=== PATIENT | male | born 1960 | race Caucasian/White ===

== ENCOUNTER 2018-11-26 07:58 | Observation (INO) | payer BC ==
[2018-11-26] MEDS ORDERED: ASPIRIN 81 MG TABLET, CHEWABLE PO ONE (09:40)
--- NOTE | 2018-11-26 10:08 | ER Document Report ---
ED Cardiac - General Chief Complaint: Chest Pain Stated Complaint: CHEST PAIN Time Seen by Provider: 11/26/18 09:40 Mode of Arrival: Ambulatory Information source: Patient, Relative Notes: Patient is a 58-year-old male comes emergency room with a 2-day onset of back and chest pain. Patient states he started with left scapular pain on Thursday night and progressed to the left shoulder down the left arm and into the hand. The hand started to tingle and that would come and go for the next day or so but the pain in the back shoulder and arm maintained pretty constant rate of discomfort. Patient also informs me he had a PR 5 years ago and had 2 stents placed. This was done in [place]. He also has a history of hypertension and has run out of his blood pressure medications. He is currently on mail order medication supply and the physician that wrote him the original prescriptions schedule him to come back in a year and did not give him enough medications for that year and is now requesting that he come back in for a visit before the right the rest of the prescriptions. So patient's been out of his blood pressure medications for about a month and a half. He was currently on metoprolol 25 mg twice a day and losartan 100 mg daily. He also does take a baby aspirin daily and is continued to do that. Patient states he is got a pretty significant family history of heart disease and hypertension in the family he has 6 brothers and 3 sisters all of whom have some form of hypertension or have had CAD in the past with open heart surgery. Mother and father according to patient have no history of heart problems. 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 He does do some heavy lifting moving and pulling on a regular basis about every other day. He does state that it hurts to take a deep breath but has not had any cough. He continues to smoke a pack of cigarettes a day. Patient is denied any major shortness of breath and has had no nausea vomiting or sweating with this presentation of pain. Patient's blood pressures on arrival are notably high with the left arm showing 191/104 and the right arm showing 185/103. His pulse rates currently 96/min and he is satting 98% on room air. He is afebrile. Patient does state that the pain he has currently is about a 3 out of 5. Is been fairly constant since his inception of the pain with the exception of the hand with tingling coming and going. He does state that he did take Tylenol and the pain got a little better but when it wore off the pain came right back. interjects that last night he could not sleep because he could not find a position of comfort. Also informs me that exertion does not seem to have any impact on the intensity of this discomfort. TRAVEL OUTSIDE OF THE [place] IN LAST 30 DAYS: No - HPI Patient complains to provider of: Chest pain Was the onset of pain: Sudden Is the pain a: New problem Chest pain location: Pleuritic, Other - Above left breast Quality of pain: Achy, Tightness Chest pain radiation location: Left arm, Left shoulder, Back Severity now: Moderate Severity at worst: Moderate Pain level currently: 3 Chest pain precipitating factors: Physical Exertion Cardiac risk factors: Hypertension, Smoker, + Family history, Hx PR. denies: Diabetes Positive cardiac history: Yes Associated symptoms: Back pain. denies: Nausea/vomiting, Neck pain, Shortness of breath Exacerbated by: Denies Relieved by: Other - Tylenol helps some Similar symptoms previously: Yes Recently seen / treated by doctor: No - Related Data Allergies/Adverse Reactions: No Known Allergies Allergy (Verified 11/26/18 08:01) Past Medical History - General Information source: Patient, Relative - Social History Smoking Status: Current Every Day Smoker Cigarette use (# per day): Yes - Pack a day Chew tobacco use (# tins/day): No Smoking Education Provided: Yes Frequency of alcohol use: Rare Drug Abuse: None Lives with: Family, Spouse/Significant other Family History: Reviewed & Not Pertinent, CAD, DM, Hyperlipidemia, Hypertension Patient has suicidal ideation: No Patient has homicidal ideation: No - Past Medical History Cardiac Medical History: Reports: Hx Hypertension Renal/ Medical History: Denies: Hx Peritoneal Dialysis - Immunizations Hx Diphtheria, Pertussis, Tetanus Vaccination: Yes Review of Systems - Review of Systems Constitutional: No symptoms reported EENT: No symptoms reported Cardiovascular: See HPI, Chest pain Respiratory: See HPI, Hurts to breathe Gastrointestinal: No symptoms reported Genitourinary: No symptoms reported Male Genitourinary: No symptoms reported Musculoskeletal: No symptoms reported Skin: No symptoms reported Hematologic/Lymphatic: No symptoms reported Neurological/Psychological: No symptoms reported -: Yes All other systems reviewed and negative Physical Exam - Vital signs Vitals: Temp Pulse Resp BP Pulse Ox 98.2 F 96 20 185/103 H 98 11/26/18 08:11 11/26/18 08:11 11/26/18 08:11 11/26/18 08:11 11/26/18 08:11 Interpretation: Hypertensive - Notes Notes: PHYSICAL EXAMINATION: GENERAL: Patient is a well-nourished well-developed 58-year-old male who on physical exam today is in no apparent distress. HEAD: Atraumatic, normocephalic. EYES: Pupils equal round and reactive to light, extraocular movements intact, sclera anicteric, conjunctiva are normal. ENT: Nares patent, oropharynx clear without exudates. Moist mucous membranes. NECK: Normal range of motion, supple without lymphadenopathy LUNGS: Auscultation patient's lung todd show he does have bilateral breath sounds with breath sounds decreased throughout no rhonchi rales or wheeze are noted on auscultation. HEART: Regular rate and rhythm without murmurs ABDOMEN: Soft, nontender, nondistended abdomen. No guarding, no rebound. No masses appreciated. Musculoskeletal: Examination patient's area of concern is his left anterior chest and shoulder and arm as well as the left scapular region. Palpation along the scapular border shows some mildly reproducible tenderness mid scapula to palpation. There appears to be a inflamed knot in the area that seems to also send pain through to the chest when palpated. Anterior chest also noted is some mild reproducible pain with resistance of the arms. Patient has full range of motion of the arm and shoulder without any deficits. He has good pulmonologist intensivist strength in the left hand and good cap refill in the nailbeds of the fingers of the left hand. He has good flexion extension at the elbow without any discomfort or pain. NEUROLOGICAL Normal speech, normal gait. Normal sensory, motor exams PSYCH: Normal mood, normal affect. SKIN: Warm, Dry, normal turgor, no rashes or lesions noted. Course - Re-evaluation Re-evalutation: 11/26/18 13:03 Patient state emergency room proved to be somewhat interesting in the fact that he came in he was tachycardic at 105 showed Q waves in inferior leads which most likely are old in nature since he had a STEMI back in 2013 on her last EKG we did here. Patient did receive 100% relief of his 3 out of 5 pain with 2 nitros. He did give a headache so we did give him Tylenol and since that time he has been pain-free and headache free. While charting on the other patients I was watching the monitor on patient and at some point he dropped down on the monitor into the low 50s high 40s on his monitor strip. I had nursing repeat the EKG and it coming back showing a bradycardia that did not show a block. That was rated at 54 beats a minute. Q wave continued in the inferior leads. Patient has not been on any medications for a month to month and a half so he is not on a beta-shawnee and is not on his losartan. At the inability to figure out why he should be at 50 bpm felt it was necessary to have him admitted for monitoring tonight. - Vital Signs Vital signs: Temp Pulse Resp BP Pulse Ox 98.2 F 96 13 161/86 H 99 11/26/18 08:11 11/26/18 08:11 11/26/18 12:56 11/26/18 12:56 11/26/18 12:56 - Laboratory Result Diagrams: 11/26/18 10:11 11/26/18 10:11 Laboratory results interpreted by me: 11/26/18 10:11 Potassium 5.3 H Discharge - Discharge Clinical Impression: Bradycardia Chest pain Qualifiers: Chest pain type: unspecified Qualified Code(s): R07.9 - Chest pain, unspecified Condition: Stable Disposition: ADMITTED OBSERVATION Admitting Provider: Jennifer (Hospitalist) Unit Admitted: Telemetry
--- NOTE | 2018-11-26 10:10 | RADIOLOGY REPORT (SQ) ---
EXAM DESCRIPTION: CHEST SINGLE VIEW COMPLETED DATE/TIME: 11/26/2018 10:01 am REASON FOR STUDY: cp COMPARISON: None. EXAM PARAMETERS: NUMBER OF VIEWS: One view. TECHNIQUE: Single frontal radiographic view of the chest acquired. RADIATION DOSE: NA LIMITATIONS: None. FINDINGS: LUNGS AND PLEURA: No opacities, masses or pneumothorax. No pleural effusion. MEDIASTINUM AND HILAR STRUCTURES: No masses. Contour normal. HEART AND VASCULAR STRUCTURES: Heart normal in size. Normal vasculature. BONES: No acute findings. HARDWARE: None in the chest. OTHER: No other significant finding. IMPRESSION: NO ACUTE RADIOGRAPHIC FINDING IN THE CHEST. TECHNICAL DOCUMENTATION: JOB ID: [id number] [employer]- All Rights Reserved Reading location - IP/workstation name: [email or web address]
[2018-11-26] MEDS: NITROGLYCERIN 0.4 MG/TAB 25 TAB/BOTTLE SL PRN ×2 (10:23→10:46)
[2018-11-26 10:32] LABS: ABSOLUTE EOSINOPHILS # (AUTO) 0.1 10^3/uL (0.0-0.6); ABSOLUTE LYMPHOCYTES (AUTO) 2.2 10^3/uL (0.5-4.7); ABSOLUTE MONOCYTES (AUTO) 0.4 10^3/uL (0.1-1.4); ABSOLUTE NEUT (AUTO) 4.2 10^3/uL (1.7-8.2); BASOPHILS % (AUTO) 0.5 % (0-2); HEMATOCRIT 45.3 % (37.9-51.0); HEMOGLOBIN 15.4 g/dL (13.5-17.0); MEAN CORPUSCULAR HGB CONC 33.9 g/dL (32.0-36.0); MEAN CORPUSCULAR VOLUME 92 fl (80-97); MONOCYTES % (AUTO) 6.4 % (3-13); PLATELET COUNT 210 10^3/uL (150-450); RED BLOOD COUNT 4.95 10^6/uL (4.35-5.55); RED CELL DISTRIBUTION WIDTH 12.8 % (11.5-14.0); SEGMENTED NEUTROPHILS % (AUTO) 61.1 % (42-78); TOTAL CELLS COUNTED % (AUTO) 100 %; WHITE BLOOD COUNT 6.9 10^3/uL (4.0-10.5)
[2018-11-26 11:01] LABS: CREATINE KINASE MB 0.76 ng/mL (<4.55)
[2018-11-26 11:02] LABS: ALANINE AMINOTRANSFERASE 28 U/L (21-72); ALBUMIN 4.7 g/dL (3.5-5.0); ALKALINE PHOSPHATASE 81 U/L (38-126); ANION GAP 11 (5-19); ASPARTATE AMINO TRANSFERASE 27 U/L (17-59); BILIRUBIN,DIRECT 0.3 mg/dL (0.0-0.4); BILIRUBIN,TOTAL 0.4 mg/dL (0.2-1.3); BLOOD UREA NITROGEN 8 mg/dL (7-20); CALCIUM 10.2 mg/dL (8.4-10.2); CARBON DIOXIDE 26 mmol/L (22-30); CHLORIDE 104 mmol/L (98-107); CREATINE KINASE 71 U/L (55-170); GLUCOSE 95 mg/dL (75-110); POTASSIUM 5.3 mmol/L (3.6-5.0); SODIUM 141.2 mmol/L (137-145); TOTAL PROTEIN 7.7 g/dL (6.3-8.2); TROPONIN I < 0.012 ng/mL
[2018-11-26] MEDS ORDERED: ACETAMINOPHEN 325 MG TABLET PO ONE (11:10)
[2018-11-26] MEDS ORDERED: ONDANSETRON HCL INJ/PF 4 MG/2 ML SDV IV PRN (14:03)
[2018-11-26] MEDS ORDERED: (PENDING PHARMACY ID) (Nitroglycerin [Nitrostat] 0.3 MG) SL PRN (14:08)
[2018-11-26] MEDS ORDERED: HYDRALAZINE HCL INJ/PF 20 MG/1 ML SDV IV PRN (14:10)
[2018-11-26] MEDS ORDERED: MORPHINE SULFATE 10 MG/ML INJ IV PRN (14:10)
[2018-11-26] MEDS ORDERED: (PENDING PHARMACY ID) (Losartan Potassium [Losartan Potassium] 1 TAB) PO SCH (14:15)
[2018-11-26] MEDS ORDERED: METOPROLOL TARTRATE 50 MG TABLET PO SCH (14:15)
--- NOTE | 2018-11-26 14:21 | PDOC H&P ---
History of Present Illness Admission Date/PCP: 11/26/18 13:16 Patient complains of: Chest pain History of Present Illness: BRYANT CASTANEDA is a 58 year old male with history of hypertension, coronary artery disease status post NV in 2013 status post 2 stent placements came to the emergency room with complaints of left shoulder pain pain between the shoulder b lades associated with left arm numbness and pain for the last 2 days. Pain is increasing with movements. Denies any shortness of breath denies any headaches denies any dizzy spells denies any nausea vomiting denies any cough cold. Patient is not compliant with medications ran out of the medication 6 weeks ago. Past Medical History Cardiac Medical History: Reports: Myocardial Infarction, Hypertension Past Surgical History Past Surgical History: Reports: Cardiac Catheterization - X2 Social History Lives with: Family, Spouse/Significant other Smoking Status: Current Every Day Smoker Frequency of Alcohol Use: None Hx Recreational Drug Use: No - Advance Directive Resuscitation Status: Full Code Family History Family History: Reviewed & Not Pertinent, CAD, DM, Hyperlipidemia, Hypertension Parental Family History Reviewed: Yes - Family history of heart disease with NV. Children Family History Reviewed: Yes Sibling(s) Family History Reviewed.: Yes Medication/Allergy Home Medications: Aspirin [Ecotrin] 81 mg PO DAILY 11/26/18 Losartan Potassium 1 tab PO DAILY 11/26/18 Metoprolol Tartrate [Lopressor 50 mg Tablet] 25 mg PO Q12H 11/26/18 Nitroglycerin [Nitrostat] 0.3 mg SL PRN PRN 11/26/18 Allergies/Adverse Reactions: No Known Allergies Allergy (Verified 11/26/18 08:01) Review of Systems Constitutional: ABSENT: fatigue, headache(s), weakness Eyes: ABSENT: visual disturbances Ears: ABSENT: hearing changes Nose, Mouth, and Throat: ABSENT: sore throat Cardiovascular: PRESENT: chest pain Respiratory: ABSENT: cough, hemoptysis Gastrointestinal: ABSENT: abdominal pain, constipation, diarrhea, hematemesis, hematochezia, nausea, vomiting Musculoskeletal: ABSENT: joint swelling Neurological: ABSENT: abnormal gait, abnormal speech, confusion, dizziness, focal weakness, syncope Psychiatric: ABSENT: anxiety, depression, homidical ideation, suicidal ideation Physical Exam Vital Signs: Temp Pulse Resp BP Pulse Ox 98.2 F 96 15 168/94 H 100 11/26/18 08:11 11/26/18 08:11 11/26/18 14:00 11/26/18 13:31 11/26/18 14:00 Intake & Output 11/25/18 11/26/18 11/27/18 06:59 06:59 06:59 Weight 86.1 kg General appearance: PRESENT: no acute distress Head exam: PRESENT: atraumatic Eye exam: PRESENT: PERRLA Mouth exam: PRESENT: moist, tongue midline Teeth exam: PRESENT: poor dentation Neck exam: ABSENT: carotid bruit, JVD, lymphadenopathy, thyromegaly Respiratory exam: PRESENT: clear to auscultation alex. ABSENT: rales, rhonchi, wheezes Cardiovascular exam: PRESENT: RRR. ABSENT: diastolic murmur, rubs, systolic murmur GI/Abdominal exam: PRESENT: normal bowel sounds, soft. ABSENT: distended, guarding, mass, organolmegaly, rebound, tenderness Neurological exam: PRESENT: alert, awake, oriented to person, oriented to place, oriented to time, oriented to situation, CN II-XII grossly intact. ABSENT: motor sensory deficit Psychiatric exam: PRESENT: appropriate affect, normal mood. ABSENT: homicidal ideation, suicidal ideation Results Laboratory Results: 11/26/18 10:11 11/26/18 10:11 11/26/18 11/26/18 10:11 10:11 WBC 6.9 RBC 4.95 Hgb 15.4 Hct 45.3 MCV 92 MCH 31.0 MCHC 33.9 RDW 12.8 Plt Count 210 Seg Neutrophils % 61.1 Lymphocytes % 31.0 Monocytes % 6.4 Eosinophils % 1.0 Basophils % 0.5 Absolute Neutrophils 4.2 Absolute Lymphocytes 2.2 Absolute Monocytes 0.4 Absolute Eosinophils 0.1 Absolute Basophils 0.0 Sodium 141.2 Potassium 5.3 H Chloride 104 Carbon Dioxide 26 Anion Gap 11 BUN 8 Creatinine 1.01 Est GFR ( Amer) > 60 Est GFR (Non-Af Amer) > 60 Glucose 95 Calcium 10.2 Total Bilirubin 0.4 AST 27 ALT 28 Alkaline Phosphatase 81 Total Protein 7.7 Albumin 4.7 11/26/18 11/26/18 11/26/18 10:11 10:11 13:14 Creatine Kinase 71 CK-MB (CK-2) 0.76 Troponin I < 0.012 < 0.012 Impressions: Chest X-Ray 11/26/18 09:40 IMPRESSION: NO ACUTE RADIOGRAPHIC FINDING IN THE CHEST. Assessment and Plan - Diagnosis (1) Chest pain Qualifiers: Chest pain type: unspecified Qualified Code(s): R07.9 - Chest pain, unspecified Is this a current diagnosis for this admission?: Yes Plan: 11/[id number]-old male with history of coronary artery disease status post NV and 2 stent placements came with chest pain-like symptoms. Troponin is negative patient is chest pain-free at the time of my examination and EKG no acute changes but heart rate dropped from 100-50 without any beta-blockers. It is going to be not telemetry as observation admission cardiac enzymes x3 requested started on aspirin 325 mg p.o. daily, atorvastatin 10 mg p.o. nightly, lipid panel was requested for the morning. Pharmacological stress test was requested. Cardiac enzymes x3 was requested repeat EKG was requested for this evening. Started on morphine 1 mg IV every 4 PRN for chest pain. He was placed on oxygen 2 L nasal cannula. He was started on hydralazine 10 mg IV every 4 as needed for blood pressure. Home medication losartan was restarted. (2) Hypertensive urgency Is this a current diagnosis for this admission?: Yes Plan: 11/26/2018-patient came in with high blood pressures initially systolic blood pressure is more than 180. With medications latest blood pressure came down to 160 systolic. Patient denies any headaches dizzy spells. He was restarted on losartan and placed on hydralazine 10 mg IV every 4 as needed for systolic blood pressure more than 150. He is to continue to monitor the blood pressure every 4 hours. he was started on low-sodium diet. (3) Coronary artery disease Is this a current diagnosis for this admission?: No Plan: 11/26/2018-patient given the history of coronary artery disease status post NV with stent placements in 2013. Came in with chest pains and to rule out acute coronary syndrome. At the time of my examination patient is chest pain-free initial troponin is negative and EKG no acute changes. - Time Time Spent with patient: 25-34 minutes Smoking Cessation Education: over 10 minutes Medications reviewed and adjusted accordingly: Yes Anticipated discharge: Home
[2018-11-26] MEDS: ENOXAPARIN SODIUM INJ 40 MG/0.4 ML DISP.SYRIN SUBCUT SCH (15:22)
[2018-11-26] MEDS: NICOTINE 21 MG/24 HR PATCH.TD24 TD SCH (15:22)
[2018-11-26 17:30] LABS: CREATINE KINASE MB 0.67 ng/mL (<4.55)
[2018-11-26 17:35] LABS: TROPONIN I < 0.012 ng/mL
[2018-11-26] MEDS: LOSARTAN POTASSIUM 50 MG TABLET PO SCH (18:49)
--- NOTE | 2018-11-26 19:28 | EKG REPORT ---
SEVERITY:- ABNORMAL ECG - SINUS TACHYCARDIA INFERIOR INFARCT, AGE INDETERMINATE : Confirmed by: Candace Sanchez MD 26-Nov-2018 19:28:29
--- NOTE | 2018-11-26 19:28 | EKG REPORT ---
SEVERITY:- ABNORMAL ECG - SINUS RHYTHM PROBABLE INFERIOR INFARCT, AGE INDETERMINATE LATERAL LEADS ARE ALSO INVOLVED : Confirmed by: Candace Sanchez MD 26-Nov-2018 19:28:25
[2018-11-26] MEDS: ACETAMINOPHEN 325 MG TABLET PO PRN (20:00)
[2018-11-26] MEDS: FAMOTIDINE 20 MG TABLET PO SCH (21:21)
[2018-11-26] MEDS ORDERED: ATORVASTATIN CALCIUM 10 MG TABLET PO SCH (22:00)
[2018-11-26 22:39] LABS: CREATINE KINASE MB 0.62 ng/mL (<4.55)
[2018-11-26 22:42] LABS: TROPONIN I < 0.012 ng/mL
[2018-11-27 04:36] LABS: ABSOLUTE EOSINOPHILS # (AUTO) 0.1 10^3/uL (0.0-0.6); ABSOLUTE LYMPHOCYTES (AUTO) 2.2 10^3/uL (0.5-4.7); ABSOLUTE MONOCYTES (AUTO) 0.4 10^3/uL (0.1-1.4); ABSOLUTE NEUT (AUTO) 3.5 10^3/uL (1.7-8.2); BASOPHILS % (AUTO) 0.5 % (0-2); EOSINOPHILS % (AUTO) 1.5 % (0-6); HEMATOCRIT 42.6 % (37.9-51.0); HEMOGLOBIN 14.6 g/dL (13.5-17.0); LYMPHOCYTES % (AUTO) 35.1 % (13-45); MEAN CORPUSCULAR HEMOGLOBIN 31.3 pg (27.0-33.4); MEAN CORPUSCULAR HGB CONC 34.3 g/dL (32.0-36.0); MEAN CORPUSCULAR VOLUME 91 fl (80-97); MONOCYTES % (AUTO) 6.9 % (3-13); PLATELET COUNT 187 10^3/uL (150-450); RED BLOOD COUNT 4.67 10^6/uL (4.35-5.55); RED CELL DISTRIBUTION WIDTH 13.1 % (11.5-14.0); TOTAL CELLS COUNTED % (AUTO) 100 %; WHITE BLOOD COUNT 6.2 10^3/uL (4.0-10.5)
[2018-11-27] MEDS: ACETAMINOPHEN 325 MG TABLET PO PRN (04:44)
[2018-11-27 04:52] LABS: ALANINE AMINOTRANSFERASE 26 U/L (21-72); ALKALINE PHOSPHATASE 71 U/L (38-126); ANION GAP 9 (5-19); ASPARTATE AMINO TRANSFERASE 23 U/L (17-59); BILIRUBIN,DIRECT 0.2 mg/dL (0.0-0.4); BILIRUBIN,TOTAL 0.7 mg/dL (0.2-1.3); BLOOD UREA NITROGEN 15 mg/dL (7-20); CALCIUM 9.6 mg/dL (8.4-10.2); CARBON DIOXIDE 25 mmol/L (22-30); CHLORIDE 106 mmol/L (98-107); CHOLESTEROL 174.04 mg/dL (0-200); GLUCOSE 96 mg/dL (75-110); POTASSIUM 4.4 mmol/L (3.6-5.0); SODIUM 140.1 mmol/L (137-145); TOTAL PROTEIN 6.7 g/dL (6.3-8.2); TRIGLYCERIDES 219 mg/dL (<150)
[2018-11-27 05:03] LABS: DIRECT LDL 104 mg/dL (<100)
[2018-11-27 05:12] LABS: TROPONIN I < 0.012 ng/mL; VLDL CHOLESTEROL 43.8 mg/dL (10-31)
[2018-11-27] MEDS: NICOTINE 21 MG/24 HR PATCH.TD24 TD SCH (09:33)
[2018-11-27] MEDS: FAMOTIDINE 20 MG TABLET PO SCH (09:35)
[2018-11-27] MEDS: LOSARTAN POTASSIUM 50 MG TABLET PO SCH (09:35)
[2018-11-27] MEDS: ENOXAPARIN SODIUM INJ 40 MG/0.4 ML DISP.SYRIN SUBCUT SCH (09:39)
[2018-11-27] MEDS ORDERED: DOCUSATE SODIUM 100 MG/10 ML UDC PO SCH (10:00)
[2018-11-27] MEDS ORDERED: LOSARTAN POTASSIUM 50 MG TABLET PO SCH (10:00)
[2018-11-27] MEDS ORDERED: ASPIRIN 81 MG TABLET, CHEWABLE PO SCH (10:00)
[2018-11-27 15:01] VITALS: BP 143/89
--- NOTE | 2018-11-27 20:04 | PDOC DISCHARGE SUMMARY ---
General - Admit/Disc Date/PCP Admission Date/Primary Care Provider: 11/26/18 14:03 Discharge Date: 11/27/18 - Discharge Diagnosis (1) Chest pain Is this a current diagnosis for this admission?: Yes Summary: The patient has a history of coronary disease. He was admitted for chest pain rule out. 5 troponin levels were all less than 0.012. The patient has a primary manager embalmer funeral director (Dr. Littlejohn) who is, I believe, at vitamin. Encourage the patient to make a follow-up appointment and I will defer to Dr. Littlejohn for additional testing. The patient was pain-free at the time of discharge. (2) Coronary artery disease Is this a current diagnosis for this admission?: Yes Summary: The patient will resume his aspirin therapy. I also suggested he increase his atorvastatin dose to 20 mg until he sees Dr. Littlejohn. He may likely increase the dose again. As noted above he will return to his primary manager embalmer funeral director for further evaluation. (3) Hypertensive urgency Is this a current diagnosis for this admission?: Yes Summary: The patient's pressure was elevated at admission. His losartan was resumed. He is not on any beta-shawnee but I will defer to his primary manager embalmer funeral director. Back on the losartan his blood pressure is slowly improving. (4) Hypercholesterolemia Is this a current diagnosis for this admission?: Yes Summary: As noted above, based on his LDL greater than 100, I did encourage the patient to increase his atorvastatin until he sees his manager embalmer funeral director. - Additional Information Resuscitation Status: Full Code Discharge Diet: Cardiac Discharge Activity: Activity As Tolerated Prescriptions: Atorvastatin Calcium [Lipitor 20 mg Tablet] 20 mg PO QHS #30 tablet Losartan Potassium 100 mg PO DAILY 30 Days #30 tablet Nitroglycerin [Nitrostat 0.4 mg (1/150 Gr) Tabs 25/Bottle] 1 tab SL Q5MP PRN #1 bottle PRN Reason: For Chest Pain Home Medications: Aspirin [Adult Low Dose Aspirin EC] 81 mg PO DAILY 11/26/18 Aspirin [Aspirin 81 mg Chewable Tablet] 324 mg PO DAILY tab.chew 11/27/18 Atorvastatin Calcium [Lipitor 20 mg Tablet] 20 mg PO QHS #30 tablet 11/27/18 Losartan Potassium 100 mg PO DAILY 30 Days #30 tablet 11/27/18 Nicotine [Nicoderm 21 mg/24 Hr Transderm Patch] 1 each TD DAILY patch.td24 11/27/18 Nitroglycerin [Nitrostat 0.4 mg (1/150 Gr) Tabs 25/Bottle] 1 tab SL Q5MP PRN #1 bottle 11/27/18 Nitroglycerin [Nitrostat] 0.3 mg SL .PRN PRN 11/27/18 History of Present Illness Patient complains of: Chest pain History of Present Illness: BRYANT CASTANEDA is a 58 year old male presented to the emergency department with left shoulder discomfort radiating to the scapula. He also had left arm numbness. These symptoms have been present over the last 2 days. The symptoms increase with exertion. Unfortunately he is noncompliant and has not been on any of his medications for 6 weeks. Because of his uncontrolled blood pressure and history of myocardial infarction in 2013 with 2 stents placed, the patient was referred to the hospital service for admission. Hospital Course Hospital Course: Patient had an uneventful hospital course. He is pain-free. Serial troponins were negative. I increased his atorvastatin and strongly suggested that he follow-up with his primary manager embalmer funeral director. Physical Exam Vital Signs: Temp Pulse Resp BP Pulse Ox 98.0 F 59 L 16 155/90 H 97 11/27/18 11:21 11/27/18 11:21 11/27/18 11:21 11/27/18 11:21 11/27/18 11:21 Intake & Output 11/26/18 11/27/18 11/28/18 06:59 06:59 06:59 Intake Total 800 Output Total 600 Balance 200 Weight 85.4 kg General appearance: PRESENT: no acute distress, cooperative, well-developed Head exam: PRESENT: atraumatic, normocephalic Respiratory exam: PRESENT: clear to auscultation alex, symmetrical, unlabored. ABSENT: accessory muscle use, rales, rhonchi, tachypnea, wheezes Cardiovascular exam: PRESENT: RRR, +S1, +S2, systolic murmur - 07/04 GI/Abdominal exam: PRESENT: normal bowel sounds, soft. ABSENT: distended, tenderness Rectal exam: PRESENT: deferred Gentrourinary exam: ABSENT: indwelling catheter Musculoskeletal exam: PRESENT: ambulatory Neurological exam: PRESENT: alert, awake, oriented to person, oriented to place, oriented to time, oriented to situation, CN II-XII grossly intact. ABSENT: motor sensory deficit Psychiatric exam: PRESENT: appropriate affect, normal mood. ABSENT: agitated, anxious Focused psych exam: ABSENT: delusional, restlessness Results Laboratory Results: 11/27/18 04:07 11/27/18 04:07 11/27/18 11/27/18 11/27/18 04:07 04:07 04:07 WBC 6.2 RBC 4.67 Hgb 14.6 Hct 42.6 MCV 91 MCH 31.3 MCHC 34.3 RDW 13.1 Plt Count 187 Seg Neutrophils % 56.0 Lymphocytes % 35.1 Monocytes % 6.9 Eosinophils % 1.5 Basophils % 0.5 Absolute Neutrophils 3.5 Absolute Lymphocytes 2.2 Absolute Monocytes 0.4 Absolute Eosinophils 0.1 Absolute Basophils 0.0 Sodium 140.1 Potassium 4.4 Chloride 106 Carbon Dioxide 25 Anion Gap 9 BUN 15 Creatinine 1.03 Est GFR ( Amer) > 60 Est GFR (Non-Af Amer) > 60 Glucose 96 Calcium 9.6 Magnesium 2.1 Total Bilirubin 0.7 AST 23 ALT 26 Alkaline Phosphatase 71 Total Protein 6.7 Albumin 4.0 Triglycerides 219 H Cholesterol 174.04 LDL Cholesterol Direct 104 H VLDL Cholesterol 43.8 H HDL Cholesterol 46 TSH 2.32 11/26/18 11/26/18 11/26/18 10:11 10:11 13:14 Creatine Kinase 71 CK-MB (CK-2) 0.76 Troponin I < 0.012 < 0.012 NT-Pro-B Natriuret Pep 11/26/18 11/26/18 11/26/18 16:40 16:40 22:00 Creatine Kinase 55 55 CK-MB (CK-2) 0.67 Troponin I < 0.012 NT-Pro-B Natriuret Pep 11/26/18 11/27/18 11/27/18 22:00 04:07 04:07 Creatine Kinase 53 L CK-MB (CK-2) 0.62 0.80 Troponin I < 0.012 < 0.012 NT-Pro-B Natriuret Pep 11/27/18 04:07 Creatine Kinase CK-MB (CK-2) Troponin I NT-Pro-B Natriuret Pep 480 Impressions: Chest X-Ray 11/26/18 09:40 IMPRESSION: NO ACUTE RADIOGRAPHIC FINDING IN THE CHEST. Qualifiers - * PATIENT BEING DISCHARGED WITH ANY OF THE FOLLOWING DIAGNOSIS: No Acute Heart Failure Is this a Heart Failure Patient?: No
--- NOTE | 2018-11-27 23:45 | EKG REPORT ---
SEVERITY:- ABNORMAL ECG - SINUS RHYTHM PROBABLE INFERIOR INFARCT, AGE INDETERMINATE MINIMAL ST ELEVATION, ANTERIOR LEADS : Confirmed by: Candace Sanchez MD 27-Nov-2018 23:44:35
== END 2018-11-27 15:55 | disposition home or self-care (01) ==
LOC: ER 07:58 → EH 13:16 → OBSVTOIN 14:03 → INTOOBSV 14:03 → EH 16:09 → 5 16:09 → UNDODISIN 11-27 15:55
PROVIDERS: ADMIT Internal Medicine; ATTEND Internal Medicine
PROC: HZ31ZZZ Individual Counseling for Substance Abuse Treatment, Behavioral (ICD-10-PCS; principal; 2018-11-26)
DX: R07.9 Chest pain, unspecified (principal); I25.10 Atherosclerotic heart disease of native coronary artery without angina pectoris; I16.0 Hypertensive urgency; E78.00 Pure hypercholesterolemia, unspecified; R20.0 Anesthesia of skin; R01.1 Cardiac murmur, unspecified; M25.512 Pain in left shoulder; M54.9 Dorsalgia, unspecified; R07.1 Chest pain on breathing; R51 Headache; R00.1 Bradycardia, unspecified; I25.2 Old myocardial infarction; R00.0 Tachycardia, unspecified; F17.210 Nicotine dependence, cigarettes, uncomplicated; Z79.899 Other long term (current) drug therapy; Z79.82 Long term (current) use of aspirin; Z91.14 Patient's other noncompliance with medication regimen; Z82.49 Family history of ischemic heart disease and other diseases of the circulatory system; Z95.5 Presence of coronary angioplasty implant and graft
CPT/HCPCS: 93005 ×2; 99285; 96372; 36415 ×2; 82553 ×2; 82550 ×2; 83735; 84443; 85025 ×2; 80053 ×2; 84484 ×2; 83036; 80061; 83880; 71045; 93010; 99407; J0360; J1650; G0378